=== PATIENT | female | born 1955 | race Caucasian/White ===

== ENCOUNTER → 2018-04-17 | Outpatient (CLI) | payer OTHER ==
--- NOTE | 2018-04-30 16:24 | RAD ---
DATE: 04/30/2018 EXAM: MAMMO WILMA SCREENING BILATERAL HISTORY: Asymptomatic screening mammogram. COMPARISON: No priors available for comparison at the time of the image interpretation. This study was interpreted with the benefit of Computerized Aided Detection (CAD). The breast parenchyma is primarily fatty replaced. Breast parenchyma level density A. FINDINGS: Bilateral CC and MLO views of the breasts were performed. 3-D tomosynthesis was performed in CC and MLO projections. Right breast: There are no suspicious microcalcifications, masses or areas of architectural distortion. Left breast: There are 2 circumscribed high density masses in the slightly upper outer left breast at mid to posterior depth for which targeted ultrasound is recommended. IMPRESSION: 1. Incomplete left mammogram. Request prior imaging is submitted for comparison. No prior images are available, further evaluation with targeted left breast ultrasound is recommended. 2. Negative right mammogram. BI-RADS CATEGORY: 0 INCOMPLETE: NEEDS ADDITIONAL IMAGING EVALUATION AND/OR PRIOR MAMMOGRAMS FOR COMPARISON. RECOMMENDED FOLLOW-UP: MAMPREV REQUEST FOR PREVIOUS MAMMOGRAM PQRS compliance statement: Mammography is a sensitive method for finding small breast cancers, but it does not detect them all and is not a substitute for careful clinical examination. A negative mammogram does not negate a clinically suspicious finding and should not result in delay in biopsying a clinically suspicious abnormality. "Our facility is accredited by the [employer] Mammography [employer]."
== END | disposition home or self-care (01) ==
LOC: MAMMO 13:53
PROVIDERS: ATTEND Physician Assistant
DX: Z12.31 Encounter for screening mammogram for malignant neoplasm of breast (principal)
CPT/HCPCS: 77063; 77067

== ENCOUNTER → 2018-05-09 | Outpatient (CLI) | payer OTHER ==
--- NOTE | 2018-05-09 09:57 | RAD ---
Left breast ultrasound, 05/09/2018: History: Abnormal screening study The area of mammographic concern in the upper outer left breast was carefully scanned. There is a cluster of 3 small smooth nodules identified at the 2:00 location, 5.5 cm from the nipple. This corresponds to the mammographic appearance. These nodules measure 3.6, 4.2 and 3.4 mm in greatest diameters. There is no internal color flow. There are low level internal echoes. No definite posterior acoustic enhancement or shadowing is seen. These probably represent complicated cysts. No other abnormality is seen in this region. IMPRESSION: Cluster of probably benign small nodules at the 2:00 location as described above. Sonographic surveillance beginning in 6 months is suggested to establish stability. BI-RADS 3-probably benign findings
== END | disposition home or self-care (01) ==
LOC: US 08:45
PROVIDERS: ATTEND Physician Assistant
DX: R92.8 Other abnormal and inconclusive findings on diagnostic imaging of breast (principal)
CPT/HCPCS: 76641

== ENCOUNTER → 2018-10-20 | Outpatient (CLI) | payer OTHER ==
--- NOTE | 2018-10-20 14:14 | RAD ---
Left breast ultrasound, 10/20/2018: History: Six-month follow-up A targeted ultrasound exam the left breast was performed at the 2:00 location where an abnormality was noted on the 05/09/2018 exam. Approximate 5.5 cm from the nipple a cluster of 3 small hypoechoic nodules is again identified. These are smooth with low level internal echoes. The largest of these measures just over 4 mm. There has been no definite change since the previous study. This probably represents a cluster of complicated cysts. No new abnormality is detected. IMPRESSION: Stable small nodules at the 2:00 location most compatible with a cyst cluster. Follow-up ultrasound exam in 6 months of the time of the patient's yearly mammography is suggested. BI-RADS 3-probably benign findings
== END | disposition home or self-care (01) ==
LOC: US 12:38
PROVIDERS: ATTEND Physician Assistant
DX: N63.21 Unspecified lump in the left breast, upper outer quadrant (principal)
CPT/HCPCS: 76641

== ENCOUNTER → 2020-02-18 | Outpatient (CLI) | payer MEDICARE, OTHER ==
[2020-02-18 10:40] LABS: BASO # 0.1 x10^3/uL (0.0-0.2); BASO % 1 % (0-3); EOS # 0.6 x10^3/uL (0.0-0.7); EOS % 11 % (0-3); HEMATOCRIT 44.1 % (36.0-47.0); HEMOGLOBIN 14.9 g/dL (12.0-15.5); LYMPH # 1.8 x10^3/uL (1.0-4.8); LYMPH % 31 % (24-48); MEAN CORPUSCULAR HEMOGLOBIN 32 pg (25-35); MEAN CORPUSCULAR HGB CONC 34 g/dL (31-37); MEAN CORPUSCULAR VOLUME 93 fL (79-100); MONO # 0.5 x10^3/uL (0.0-1.1); MONO % 8 % (0-9); NEUT % 50 % (31-73); PLATELET COUNT 260 x10^3/uL (140-400); RED BLOOD COUNT 4.74 x10^6/uL (3.50-5.40); RED CELL DISTRIBUTION WIDTH 13.7 % (11.5-14.5); WHITE BLOOD COUNT 5.9 x10^3/uL (4.0-11.0)
[2020-02-18 10:48] LABS: CLARITY,URINE CLEAR; COLOR,URINE YELLOW
[2020-02-18 10:49] LABS: BILIRUBIN,URINE NEG (NEG); GLUCOSE,URINE NEG (NEG)
[2020-02-18 10:52] LABS: NITRITE,URINE NEG (NEG); UROBILINOGEN,URINE 0.2 mg/dL (0.2 mg/dL)
[2020-02-18 10:58] LABS: BACTERIA,URINE FEW /HPF (0-FEW); RBC,URINE OCC /HPF (0-2); WBC,URINE 0 /HPF (0-4)
[2020-02-18 10:59] LABS: SQUAMOUS EPITHELIAL CELL,UR MOD /LPF
[2020-02-18 11:04] LABS: ALBUMIN 3.8 g/dL (3.4-5.0); ALBUMIN/GLOBULIN RATIO 1.1 (1.0-1.7); CALCIUM 8.8 mg/dL (8.5-10.1); CREATININE 0.9 mg/dL (0.6-1.0); POTASSIUM 4.2 mmol/L (3.5-5.1); TOTAL BILIRUBIN 0.4 mg/dL (0.2-1.0); TOTAL PROTEIN 7.4 g/dL (6.4-8.2)
[2020-02-18 12:32] LABS: FREE T4 1.18 ng/dL (0.76-1.46); THYROID STIM HORMONE (TSH) 0.751 uIU/mL (0.358-3.740)
== END | disposition home or self-care (01) ==
LOC: PMG 09:44
PROVIDERS: ATTEND Physician Assistant
DX: Z00.00 Encounter for general adult medical examination without abnormal findings (principal); I10 Essential (primary) hypertension; E78.5 Hyperlipidemia, unspecified; Z79.02 Long term (current) use of antithrombotics/antiplatelets
CPT/HCPCS: 36415; 80053; 80061; 81001; 84439; 84443; 85025

== ENCOUNTER → 2020-10-11 | Outpatient (CLI) | payer MEDICARE ==
--- NOTE | 2020-10-11 11:37 | RAD ---
INDICATION: Osteoporosis screening. Postmenopausal evaluation. COMPARISON: None. TECHNIQUE: Bone densitometry was performed through the lumbar spine and proximal femur. FINDINGS: Lumbar Spine: BMD: 0.83 T-Score: -2.9 Proximal Femur: BMD: 0.66 T-Score: -2.4 IMPRESSION: 1. Lumbar spine falls within the osteoporotic range. 2. Proximal femur falls on the border between osteopenia and osteoporosis. Electronically signed by: Sacha Sepulveda MD (10/11/2020 11:34 AM) [id number]
--- NOTE | 2020-10-12 15:58 | RAD ---
DATE: 10/11/2020 2:49 PM EXAM: MAMMO WILMA SCREENING BILATERAL HISTORY: Screening COMPARISON: 04/17/2018 Bilateral CC and MLO views of the breasts were performed. Bilateral breast tomosynthesis was performed in CC and MLO projections. This study was interpreted with the benefit of Computerized Aided Detection (CAD). FINDINGS: Breast Density: FATTY The Breast Parenchyma is primarily fatty replaced. Breast parenchyma level density A. No suspicious masses, microcalcifications or architectural distortion is present to suggest malignancy in either breast. The visualized axillae are unremarkable. IMPRESSION: No mammographic evidence of malignancy. BI-RADS CATEGORY: 1 NEGATIVE RECOMMENDED FOLLOW-UP: 12M 12 MONTH FOLLOW-UP Annual screening mammography is recommended, unless clinically indicated sooner based on symptoms or change in physical exam. PQRS compliance statement: Patient information was entered into a reminder system with a target due date for the next mammogram. Mammography is a sensitive method for finding small breast cancers, but it does not detect them all and is not a substitute for careful clinical examination. A negative mammogram does not negate a clinically suspicious finding and should not result in delay in biopsying a clinically suspicious abnormality. "Our facility is accredited by the [employer] Mammography [employer]."
== END ==
LOC: DXRAD 10:42
PROVIDERS: ATTEND Family Medicine
DX: Z12.31 Encounter for screening mammogram for malignant neoplasm of breast (principal); M81.8 Other osteoporosis without current pathological fracture; M85.88 Other specified disorders of bone density and structure, other site
CPT/HCPCS: 77063; 77067; 77080

== ENCOUNTER 2021-02-13 11:34 | Emergency (ER) | payer MEDICARE ==
[~2021-02-13] VITALS: Ht 170.2 cm; Wt 78.9 kg
[2021-02-13 11:40] VITALS: BP 123/58
[2021-02-13] MEDS ORDERED: HYDROcodone/APAP 10/325 1 TAB TABLET PO ONE (12:15)
--- NOTE | 2021-02-13 12:46 | RAD ---
AP chest. HISTORY: Hip fracture AP view was taken of the chest. There is linear scarring or atelectasis in the left lung base. There are no other infiltrates. Heart is normal in size. There is no pleural effusion. IMPRESSION: 1. Mild left base linear scarring or atelectasis without other infiltrates. Electronically signed by: Herminio Rosenberg MD (02/13/2021 12:44 PM) [id number]
--- NOTE | 2021-02-13 12:48 | RAD ---
Left knee 2 views, left femur AP and lateral views, left hip 2 views with one view pelvis. HISTORY: Left hip pain, left knee pain, injury Left hip 2 views with one view pelvis Single view was taken of the pelvis. There is no acute pelvic fracture. Right hip appears unremarkabl e. AP and lateral views of the left hip show a displaced left femoral neck fracture. Left femur AP and lateral views were taken of the left femur. Again noted is the left femoral neck fracture. The re is no other acute femur fracture. Left knee 2 views the left knee show no evidence of an acute fracture or osseous abnormality. IMPRESSION: 1. No pelvic fracture noted. 2. Displaced left femoral neck fracture. 3. No other left femur fracture noted. 4. No fracture or joint effusion or acute osseous abnormality left knee. Electronically signed by: Herminio Rosenberg MD (02/13/2021 12:46 PM) [id number]
--- NOTE | 2021-02-13 13:08 | PHYS DOC ---
Past History Past Medical History: Other Additional Past Medical Histor: cluster headaches, restless leg syndrome, Past Surgical History: Tubal ligation Alcohol Use: Rarely General Adult EDM: Chief Complaint: HIP PAIN HPI: HPI: 65 yo F PMH HTN, RLS and cluster headaches, presents to the ed with c/o left hip discharges prior to arrival after patient fell off her porch, pain started when she landed. Patient states porch is approximately 2 feet off the ground. Her right foot slipped off the edge of the porch and landed such such that the right foot was flat on the ground, she was leaning forward towards this foot, when she landed but her left leg was caught backwards on the porch in a partial split position. Reports left hip pain started when her left leg buckled underneath her and she landed in a seated position on the edge of the porch with her foot underneath her buttocks Review of Systems: Review of Systems: Constitutional: Denies fever or chills Eyes: Denies change in visual acuity HENT: Denies nasal congestion or sore throat Respiratory: Denies cough or shortness of breath Cardiovascular: Denies chest pain or edema GI: Denies abdominal pain, nausea, vomiting, bloody stools or diarrhea : Denies dysuria Musculoskeletal: Denies back pain or joint pain Integument: Denies rash Neurologic: Denies headache, focal weakness or sensory changes Endocrine: Denies polyuria or polydipsia Lymphatic: Denies swollen glands Psychiatric: Denies depression or anxiety Current Medications: Current Meds: Current Medications Medications (Trade) Dose Ordered Sig/James Start Time Stop Time Status Last Admin Dose Admin Acetaminophen/ Hydrocodone Bitart (Lortab 10/325) 1 tab 1X ONCE 02/13/21 12:15 02/13/21 12:16 DC 02/13/21 12:16 1 TAB Allergies: Allergies: Allergies Coded Allergies Type Severity Reaction Last Updated Verified No Known Drug Allergies 02/13/21 No Physical Exam: PE: Constitutional: Well developed, well nourished, no acute distress, non-toxic appearance. HENT: Normocephalic, atraumatic, Eyes: EOMI, conjunctiva normal, no discharge. Neck: Normal range of motion, supple, Cardiovascular: S1/2 present, regular rhythm Lungs & Thorax: Speaking in full sentences, bilateral equal chest rise, no tachypnea or increased work of breathing Abdomen: soft, no tenderness, Skin: Warm, dry, no erythema, no rash. [] Back: No tenderness, no CVA tenderness. [] Extremities: No tenderness, no cyanosis, no lower extremity edema Neurologic: Alert and oriented X 3, normal motor function, normal sensory function, no focal deficits noted. [] Psychologic: Affect normal, judgement normal, mood normal. [] Current Patient Data: Vital Signs: Vital Signs Date Time Temp Pulse Resp B/P (MAP) Pulse Ox O2 Delivery O2 Flow Rate FiO2 02/13/21 12:16 18 99 02/13/21 11:40 97.7 88 123/58 (79) EKG: EKG: [] Radiology/Procedures: Radiology/Procedures: IMAGING REPORT Signed PATIENT: MERRICK ENCARNACION ACCOUNT: [id number] : 1955 LOCATION: ER AGE: 65 SEX: F EXAM STATUS: REG ER ORD. PHYSICIAN: MICHAEL MARCELO DO REASON: fall PROCEDURE: CT HEAD AND CERVICAL SPINE WO EXAM: CT Head without IV contrast INDICATION: Reason: fall / Spl. Instructions: / History: TECHNIQUE: Multi-detector row CT images were obtained of the head without the use of IV contrast. All CT scans performed at this facility utilize dose optimization techniques as appropriate to the exam, including the following: Automated exposure control and adjustment of the mA and/or KV according to patient size (this includes techniques or standardized protocols for targeted exams where dose is indication/reason for exam). COMPARISON: None FINDINGS: BRAIN PARENCHYMA: No evidence of acute intraparenchymal hemorrhage or infarct. No abnormal parenchymal density or mass. VENTRICLES & EXTRA-AXIAL SPACES: Ventricles are within normal limits. Basilar cisterns are patent. No pathologic extra-axial fluid collection or mass. ORBITS: Orbital contents are unremarkable. SINUSES: Visualized paranasal sinuses and mastoid air cells are clear. OSSEOUS & SOFT TISSUES: Calvarium and skull base are intact. IMPRESSION: No acute intracranial process. EXAM: CT Cervical Spine without IV contrast INDICATION: Reason: fall / Spl. Instructions: / History: TECHNIQUE: Multi-detector row CT images were obtained through the cervical spine without the use of IV contrast. Post-processing sagittal and coronal reconstructed images were obtained for interpretation. All CT scans performed at this facility utilize dose optimization techniques as appropriate to the exam, including the following: Automated exposure control and adjustment of the mA and/or KV according to patient size (this includes techniques or standardized protocols for targeted exams where dose is indication/reason for exam). COMPARISON: None FINDINGS: CRANIOCERVICAL JUNCTION: Unremarkable. ALIGNMENT: Alignment is within normal limits. OSSEOUS: Dense sclerosis in the left C3 vertebral body compatible with a bone island is noted. DISC SPACES: Multilevel disc degenerative change most conspicuous at C5-C6 and C6-C7. FACET JOINTS: Multilevel facet hypertrophic changes. No jumped facets or fractures. SPINAL CANAL: Unremarkable. NEUROFORAMINA: Unremarkable. SOFT TISSUES: Unremarkable. IMPRESSION: No acute traumatic findings on CT of the cervical spine. Electronically signed by: German Landry MD (02/13/2021 2:01 PM) [id number] DICTATED AND SIGNED BY: GERMAN LANDRY MD DATE: 02/13/21 1358 CC: JACOBO MACARIO; MICHAEL MARCELO DO ~MTH0 0 IMAGING REPORT Signed PATIENT: MERRICK ENCARNACION ACCOUNT: [id number] : 1955 LOCATION: ER AGE: 65 SEX: F EXAM STATUS: REG ER ORD. PHYSICIAN: MICHAEL MARCELO DO REASON: hip fx PROCEDURE: CHEST AP ONLY AP chest. HISTORY: Hip fracture AP view was taken of the chest. There is linear scarring or atelectasis in the left lung base. There are no other infiltrates. Heart is normal in size. There is no pleural effusion. IMPRESSION: 1. Mild left base linear scarring or atelectasis without other infiltrates. Electronically signed by: Herminio Rosenberg MD (02/13/2021 12:44 PM) [id number] DICTATED AND SIGNED BY: HERMINIO ROSENBERG MD DATE: 02/13/21 1243 CC: JACOBO MACARIO; MICHAEL MARCELO DO ~MTH0 0 IMAGING REPORT Signed PATIENT: MERRICK ENCARNACION ACCOUNT: [id number] : 1955 LOCATION: ER AGE: 65 SEX: F EXAM STATUS: REG ER ORD. PHYSICIAN: MICHAEL MARCELO DO REASON: left hip pain/left knee pain, injury PROCEDURE: KNEE LEFT 2V Left knee 2 views, left femur AP and lateral views, left hip 2 views with one view pelvis. HISTORY: Left hip pain, left knee pain, injury Left hip 2 views with one view pelvis Single view was taken of the pelvis. There is no acute pelvic fracture. Right hip appears unremarkable. AP and lateral views of the left hip show a displaced left femoral neck fracture. Left femur AP and lateral views were taken of the left femur. Again noted is the left femoral neck fracture. There is no other acute femur fracture. Left knee 2 views the left knee show no evidence of an acute fracture or osseous abnormality. IMPRESSION: 1. No pelvic fracture noted. 2. Displaced left femoral neck fracture. 3. No other left femur fracture noted. 4. No fracture or joint effusion or acute osseous abnormality left knee. Electronically signed by: Herminio Rosenberg MD (02/13/2021 12:46 PM) [id number] DICTATED AND SIGNED BY: EHRMINIO ROSENBERG MD DATE: 02/13/21 1244 CC: JACOBO MACARIO; MICHAEL MARCELO DO ~MTH0 0 Heart Score: C/O Chest Pain: No Risk Factors: Risk Factors: DM, Current or recent (<one month) smoker, HTN, HLP, family history of CAD, obesity. Risk Scores: Score 0 - 3: 2.5% MACE over next 6 weeks - Discharge Home Score 4 - 6: 20.3% MACE over next 6 weeks - Admit for Clinical Observation Score 7 - 10: 72.7% MACE over next 6 weeks - Early Invasive Strategies Course & Med Decision Making: Course & Med Decision Making Pertinent Labs and Imaging studies reviewed. (See chart for details) I have spoken with the patient and/or caregivers. I have explained the patient's condition, diagnosis and treatment plan based on the information available to me at this time. I have answered the patient's and/or caregivers questions and answered any concerns. The patient and/or caregivers have as good an understanding of the patient's diagnosis, condition and treatment plan as can be expected at this point. The patient has been stabilized within the capability of the emergency department. The patient will be transported for further care and management or will be moved to an observation or inpatient service. I have communicated with the staff or medical practitioner taking over this patient's care. Doc Disclaimer: Doc Disclaimer: This electronic medical record was generated, in whole or in part, using a voice recognition dictation system. Departure Departure: Impression: Primary Impression: Left displaced femoral neck fracture Disposition: 05 DC/TRF OTHER TYPE INSTITUTI ([facility], accepted by ) Condition: STABLE Referrals: JACOBO MACARIO (PCP) MICHAEL MARCELO DO Feb 13, 2021 13:08
--- NOTE | 2021-02-13 14:03 | RAD ---
EXAM: CT Head without IV contrast INDICATION: Reason: fall / Spl. Instructions: / History: TECHNIQUE: Multi-detector row CT images were obtained of the head without the use of IV contrast. All CT scans performed at this facility utilize dose optimization techniques as appropriate to the exam, including the following: Automated exposure control and adjustment of the mA and/or KV according to patient size (this includes techniques or standardized protocols for targeted exams where dose is ind ication/reason for exam). COMPARISON: None FINDINGS: BRAIN PARENCHYMA: No evidence of acute intraparenchymal hemorrhage or infarct. No abnormal parenchyma l density or mass. VENTRICLES & EXTRA-AXIAL SPACES: Ventricles are within normal limits. Basilar cisterns are patent. N o pathologic extra-axial fluid collection or mass. ORBITS: Orbital contents are unremarkable. SINUSES: Visualized paranasal sinuses and mastoid air cells are clear. OSSEOUS & SOFT TISSUES: Calvarium and skull base are intact. IMPRESSION: No acute intracranial process. EXAM: CT Cervical Spine without IV contrast INDICATION: Reason: fall / Spl. Instructions: / History: TECHNIQUE: Multi-detector row CT images were obtained through the cervical spine without the use of IV contrast. Post-processing sagittal and coronal reconstructed images were obtained for interpretati on. All CT scans performed at this facility utilize dose optimization techniques as appropriate to th e exam, including the following: Automated exposure control and adjustment of the mA and/or KV accord ing to patient size (this includes techniques or standardized protocols for targeted exams where dose is indication/reason for exam). COMPARISON: None FINDINGS: CRANIOCERVICAL JUNCTION: Unremarkable. ALIGNMENT: Alignment is within normal limits. OSSEOUS: Dense sclerosis in the left C3 vertebral body compatible with a bone island is noted. DISC SPACES: Multilevel disc degenerative change most conspicuous at C5-C6 and C6-C7. FACET JOINTS: Multilevel facet hypertrophic changes. No jumped facets or fractures. SPINAL CANAL: Unremarkable. NEUROFORAMINA: Unremarkable. SOFT TISSUES: Unremarkable. IMPRESSION: No acute traumatic findings on CT of the cervical spine. Electronically signed by: Matilde Landry MD (02/13/2021 2:01 PM) [id number]
[2021-02-13] MEDS ORDERED: DIPH,PERTUSS(ACELL),TET VAC/PF 0.5 ML SYRINGE. VAX IM ONE (14:30)
== END 2021-02-13 13:36 | disposition short-term general hospital (02) ==
LOC: ER 11:34
DX: S72.002A Fracture of unspecified part of neck of left femur, initial encounter for closed fracture (principal); Z20.822 Contact with and (suspected) exposure to COVID-19; M25.562 Pain in left knee; R07.89 Other chest pain; G25.81 Restless legs syndrome; G44.009 Cluster headache syndrome, unspecified, not intractable; Z98.51 Tubal ligation status; W17.89XA Other fall from one level to another, initial encounter; Y93.89 Activity, other specified; Y92.89 Other specified places as the place of occurrence of the external cause; Y99.8 Other external cause status
CPT/HCPCS: 70450; 71045; 72125; 73502; 73552; 73560; 87426; 90471; 90715; 99285; U0003; C9803; U0005

== ENCOUNTER → 2021-03-30 | Outpatient (CLI) | payer MEDICARE ==
--- NOTE | 2021-03-30 13:54 | RAD ---
EXAM: Pelvis and left hip, 3 views. HISTORY: Arthroplasty. COMPARISON: None. FINDINGS: Frontal views of the pelvis and frog-leg view of the left hip are obtained. There is a left hip arthroplasty in expected vision. There is degenerative change at the lumbosacral junction involv ing the right greater than left sacroiliac joints. IMPRESSION: Left hip arthroplasty in expected position. Electronically signed by: Indira Zaragoza MD (03/30/2021 1:52 PM) [facility]
== END ==
LOC: RAD 13:17
PROVIDERS: ATTEND Physician Assistant
DX: M25.552 Pain in left hip (principal); Z96.642 Presence of left artificial hip joint
CPT/HCPCS: 73501

== ENCOUNTER → 2021-11-27 | Outpatient (CLI) | payer MEDICARE ==
--- NOTE | 2021-11-29 13:06 | RAD ---
Bilateral screening mammogram with tomography dated 11/27/2021. INDICATION: 66 years of age asymptomatic female patient presents for screening mammography. Screening TECHNIQUE: Full field craniocaudal and mediolateral oblique images of both breasts were obtained usi ng digital technique with tomosynthesis and also analyzed with computer-aided detection software. . COMPARISON: 10/11/2020 03/20/2018. BREAST COMPOSITION: Category B: There are scattered fibroglandular densities. FINDINGS: No suspicious mass or clustered microcalcification. No architectural distortion. Parenchymal pattern is stable. There are couple of circumscribed nodular opacities in the 3:00 left breast, unchanged fro m prior study. IMPRESSION: Stable bilateral mammogram RECOMMENDATION: Annual screening mammography is recommended, unless clinically indicated sooner based on symptoms or change in physical exam. BIRADS 2: BENIGN This study was interpreted with the benefit of Computerized Aided Detection (CAD). Recommend routine follow-up exam in one year. Patient information is entered into the reminder system with a target due date for the next screening mammogram. Mammography is the most sensitive method for finding small breast cancers, but it does not detect the m all and is not a substitute for careful clinical examination. A negative mammogram does not negate a clinically suspicious finding and should not result in delay in biopsying a clinically suspicious a bnormality. "Our facility is accredited by the [employer] Mammography [employer]." Electronically signed by: Aquilino Adams MD (11/29/2021 1:04 PM) [id number]
== END ==
LOC: MAMMO 09:25
PROVIDERS: ATTEND Family Medicine
DX: Z12.31 Encounter for screening mammogram for malignant neoplasm of breast (principal)
CPT/HCPCS: 77063; 77067